=== PATIENT | male | born 1955 | race Hispanic/Latino ===

== ENCOUNTER 2019-03-30 05:07 | Inpatient (IN) ==
[2019-03-30] MEDS ORDERED: Sodium Chloride 0.9% 1,000 ML PRIMARY IV ONE ×4 (05:19→23:52)
[2019-03-30] MEDS ORDERED: ONDANSETRON 4 MG/2 ML VIAL IVP ONE (05:19)
[2019-03-30 05:32] LABS: BASOPHILS # (AUTO) 0.02 10*3/UL; BASOPHILS % (AUTO) 0.3 % (0-1); EOSINOPHILS # (AUTO) 0.02 10*3/UL; EOSINOPHILS % (AUTO) 0.3 % (0-8); Hematocrit [HCT] 42.1 % (42.0-52.0); Hemoglobin [HGB] 14.6 g/dL (14.0-18.0); LYMPHOCYTES # (AUTO) 0.51 10*3/uL; MEAN CORPUSCULAR HGB CONC 34.7 g/dL (33-37); MEAN CORPUSCULAR VOLUME 88.8 FL (80-90); MEAN PLATELET VOLUME 10.5 FL (7.4-12.2); MONOCYTES # (AUTO) 0.08 10*3/UL (0.3-0.8); MONOCYTES % (AUTO) 1.4 % (5-15); NEUTROPHILS # (AUTO) 5.25 10*3/UL; NEUTROPHILS % (AUTO) 89.3 % (50-80); PLATELET MORPHOLOGY COMMENT NORMAL MORPHOLOGY (NORM); RBC MORPHOLOGY COMMENT NORMAL MORPHOLOGY (NORM); RED BLOOD COUNT 4.74 10^6/uL (4.70-6.10); WBC MORPHOLOGY COMMENT NORMAL MORPHOLOGY (NORM)
[2019-03-30 05:46] LABS: BLOOD UREA NITROGEN 26 mg/dL (7-22); BUN/CREATININE RATIO 37.14 (6-20); SERUM ALBUMIN 3.7 g/dL (3.5-4.8)
[2019-03-30] MEDS ORDERED: LIDOCAINE W/ SODIUM BICARB 0.5 ML SYR SUBD PRN (07:08)
[2019-03-30] MEDS ORDERED: ONDANSETRON 4 MG/2 ML VIAL IVP PRN (07:08)
[2019-03-30] MEDS ORDERED: fentaNYL Inj 100 MCG/2 ML VIAL IVP PRN (07:08)
[2019-03-30] MEDS: cefTRIAXone Inj 2 GM in Sodium Chloride 0.9% 100 ML IV SCH (08:44)
[2019-03-30] MEDS ORDERED: Sodium Chloride 0.9% 100 ML IV ONE (12:08)
[2019-03-30] MEDS: ACETAMINOPHEN 325 MG TABLET PO PRN (15:14)
[2019-03-30] MEDS: IBUPROFEN 800 MG TABLET PO PRN (20:04)
[2019-03-30] MEDS ORDERED: ERTAPENEM 1 GM VIAL ONE (23:56)
[2019-03-31] MEDS ORDERED: Sodium Chloride 0.9% 100 ML IV ONE (00:03)
[2019-03-31] MEDS: Ertapenem Inj 1 GM in Sodium Chloride 0.9% 100 ML IV SCH ×2 (00:05→23:19)
[2019-03-31] MEDS ORDERED: Sodium Chloride 0.9% 1,000 ML PRIMARY IV ONE (01:57)
[2019-03-31] MEDS: Sodium Chloride 0.9% 1,000 ML PRIMARY IV SCH ×3 (03:32→17:09)
[2019-03-31 04:46] LABS: BASOPHILS # (AUTO) 0.03 10*3/UL; BASOPHILS % (AUTO) 0.3 % (0-1); EOSINOPHILS # (AUTO) 0.12 10*3/UL; EOSINOPHILS % (AUTO) 1.3 % (0-8); Hematocrit [HCT] 34.7 % (42.0-52.0); Hemoglobin [HGB] 11.8 g/dL (14.0-18.0); LYMPHOCYTES # (AUTO) 1.39 10*3/uL; MEAN CORPUSCULAR VOLUME 91.3 FL (80-90); MEAN PLATELET VOLUME 11.2 FL (7.4-12.2); MONOCYTES # (AUTO) 0.73 10*3/UL (0.3-0.8); MONOCYTES % (AUTO) 8.1 % (5-15); NEUTROPHILS # (AUTO) 6.72 10*3/UL; NEUTROPHILS % (AUTO) 74.5 % (50-80)
[2019-03-31 04:58] LABS: PLATELET MORPHOLOGY COMMENT NORMAL MORPHOLOGY (NORM); RBC MORPHOLOGY COMMENT NORMAL MORPHOLOGY (NORM); WBC MORPHOLOGY COMMENT NORMAL MORPHOLOGY (NORM)
[2019-03-31 05:04] LABS: BLOOD UREA NITROGEN 15 mg/dL (7-22); SERUM ALBUMIN 2.8 g/dL (3.5-4.8)
[2019-03-31] MEDS: cefTRIAXone Inj 2 GM in Sodium Chloride 0.9% 100 ML IV SCH (08:56)
[2019-03-31] MEDS ORDERED: Ertapenem Inj 1 GM in Sodium Chloride 0.9% 100 ML IV SCH (11:30)
[2019-03-31] MEDS ORDERED: Acetaminophen 1000mg Inj 1,000 MG/100 ML VIAL IV ONE (12:46)
[2019-03-31] MEDS: IBUPROFEN 800 MG TABLET PO PRN (12:50)
[2019-04-01] MEDS: Sodium Chloride 0.9% 1,000 ML PRIMARY IV SCH ×3 (03:04→18:31)
[2019-04-01] MEDS: ACETAMINOPHEN 325 MG TABLET PO PRN ×2 (04:27→12:28)
[2019-04-01 05:25] LABS: BASOPHILS # (AUTO) 0.02 10*3/UL; BASOPHILS % (AUTO) 0.2 % (0-1); EOSINOPHILS # (AUTO) 0.21 10*3/UL; EOSINOPHILS % (AUTO) 2.5 % (0-8); Hematocrit [HCT] 37.2 % (42.0-52.0); Hemoglobin [HGB] 12.8 g/dL (14.0-18.0); LYMPHOCYTES # (AUTO) 1.04 10*3/uL; MEAN CORPUSCULAR HGB CONC 34.4 g/dL (33-37); MEAN CORPUSCULAR VOLUME 89.9 FL (80-90); MEAN PLATELET VOLUME 11.2 FL (7.4-12.2); MONOCYTES # (AUTO) 0.55 10*3/UL (0.3-0.8); MONOCYTES % (AUTO) 6.5 % (5-15); NEUTROPHILS # (AUTO) 6.64 10*3/UL; NEUTROPHILS % (AUTO) 78.3 % (50-80); RED BLOOD COUNT 4.14 10^6/uL (4.70-6.10)
[2019-04-01 05:29] LABS: PLATELET MORPHOLOGY COMMENT NORMAL MORPHOLOGY (NORM); RBC MORPHOLOGY COMMENT NORMAL MORPHOLOGY (NORM); WBC MORPHOLOGY COMMENT NORMAL MORPHOLOGY (NORM)
[2019-04-01 05:43] LABS: BLOOD UREA NITROGEN 10 mg/dL (7-22); SERUM ALBUMIN 3.2 g/dL (3.5-4.8)
[2019-04-01] MEDS: Ertapenem Inj 1 GM in Sodium Chloride 0.9% 100 ML IV SCH (18:07)
[2019-04-02 04:20] VITALS: RESP 20
[2019-04-02 07:23] VITALS: BP 138/72; TEMP 97.3; O2SAT 92
== END 2019-04-02 10:30 | disposition home or self-care (01) | DRG 689 ==
LOC: ER 05:07 → MED/SURG 06:58
PROVIDERS: ADMIT Internal Medicine; ATTEND Internal Medicine